=== PATIENT | male | born 1970 | race Caucasian/White ===

== ENCOUNTER → 2017-01-22 | Outpatient (CLI) | payer MEDICAID ==
[~2017-01-22] MED LIST: HUMULIN N100 UNITS/ SC; METFORMIN 500M500 M1 PO; METOPROLOL25 MG PO; NORVASC 2.5MG.2.5 MG PO; PERCOCET1 TA1 PO; WELLBUTRIN SR100 MG PO; ZESTRIL 2.5MG2.5 MG NG
[2017-01-22 21:34] LABS: BUN 8 mg/dL (7-18)
[2017-01-22 21:58] LABS: GFR (ESTIMATED) 72 ML/MIN (>60)
[2017-01-24 12:36] LABS: HBsAg Screen Negative (Negative); Hep A Ab, IgM Negative (Negative); Hep B Core Ab, IgM Negative (Negative); Hep C Virus Ab 0.1 (0.0-0.9)
[2017-01-25 06:37] LABS: Vitamin D, 25-Hydroxy 19.6 ng/mL (30.0-100.0)
[2017-01-26 04:40] LABS: Vitamin A 58 ug/dL (24-85)
== END ==
LOC: LAB 17:54
PROVIDERS: Emergency Medicine
DX: E11.9 Type 2 diabetes mellitus without complications (principal)